=== PATIENT | male | born 1960 | race Two or more races ===

== ENCOUNTER 2019-04-17 22:50 | Inpatient (IN) | payer MEDICAID, OTHER ==
[~2019-04-17] VITALS: Ht 185.4 cm; Wt 68.1 kg
[2019-04-17 23:10] LABS: BASOPHILS % (AUTO) 0.3 % (0.0-2.0); EOSINOPHILS % (AUTO) 5.9 % (1.0-6.0); HEMATOCRIT 40.9 % (41-53); LYMPHOCYTES # (AUTO) 1.7 K/uL (1.0-4.8); LYMPHOCYTES % (AUTO) 25.5 % (22.0-44.0); MEAN CORPUSCULAR HEMOGLOBIN 24.7 pg (26.0-34.0); MEAN CORPUSCULAR HGB CONC 31.8 G/dL (31.0-37.0); MEAN CORPUSCULAR VOLUME 78 fL (80-100); MONOCYTES # (AUTO) 0.5 K/uL (0.1-1.0); MONOCYTES % (AUTO) 6.9 % (2.0-9.0); NEUTROPHILS % (AUTO) 61.4 % (40.0-70.0); PLATELET COUNT (AUTO) 253 K/uL (150-450); RED BLOOD CELL COUNT(AUTO) 5.26 MIL/uL (4.50-5.90); RED CELL DISTRIBUTION WIDTH 16.1 % (11.5-14.5)
[2019-04-17] MEDS ORDERED: OMEP20 PO (23:14)
[2019-04-17] MEDS ORDERED: LISI-660 PO (23:14)
[2019-04-17 23:21] LABS: ANION GAP 9 mmol/L (8-16); CARBON DIOXIDE 26 mmol/L (22-29); CHLORIDE 104 mmol/L (98-107); CREATININE 1.31 mg/dL (0.60-1.30); GLOMERULAR FILTR. RATE CALC > 60 mL/min (>60); GLUCOSE,RANDOM 103 mg/dL (70-110); POTASSIUM 4.2 mmol/L (3.5-5.1); SODIUM SERUM 139 mmol/L (136-145); UREA NITROGEN, BLOOD 6 mg/dL (7-18)
[2019-04-17 23:30] LABS: INR 1.1 (0.9-1.1); PROTHROMBIN TIME 10.8 SEC (9.4-11.6)
[2019-04-17 23:47] LABS: ALANINE AMINOTRANSFERASE 21 U/L (12-78); ALBUMIN 3.3 g/dL (3.4-5.0); ALKALINE PHOSPHATASE 118 U/L (46-116); ASPARTATE AMINOTRANSFERASE 36 U/L (15-37); BILIRUBIN,TOTAL 0.2 mg/dL (0.1-1.0); CREATINE KINASE, TOTAL ONLY 126 U/L (39-308); LIPASE 86 U/L (73-393); TOTAL PROTEIN, SERUM 7.2 g/dL (6.4-8.2)
[2019-04-18] MEDS ORDERED: ONDANSETRON HCL 4 MG/2 ML VIAL IVP PRN
[2019-04-18 00:11] LABS: B-TYPE NATRIURETIC PEPTIDE 22 pg/mL (0-100)
[2019-04-18 00:25] LABS: APPEARANCE,URINE CLEAR (CLEAR); BILIRUBIN,URINE NEGATIVE (NEGATIVE); GLUCOSE, URINE (UA) NEGATIVE (NEGATIVE); KETONES,URINE NEGATIVE (NEGATIVE); LEUKOCYTE ESTERASE ,URINE NEGATIVE (NEGATIVE); NITRATE,URINE NEGATIVE (NEGATIVE); OCCULT BLOOD,URINE NEGATIVE (NEGATIVE); PH,URINE 5.5 (5.0-8.0); PROTEIN,URINE NEGATIVE (NEGATIVE); UROBILINOGEN,URINE 0.2 mg/dL (<=1.0)
[2019-04-18 00:30] VITALS: BP 111/82
[2019-04-18 00:30] LABS: AMPHET/METH SCREEN,URINE NEGATIVE (NEGATIVE); BARBITURATE SCREEN, URINE NEGATIVE (NEGATIVE); BENZODIAZEPINES SCREEN,URINE NEGATIVE (NEGATIVE); CANNABINOID SCREEN,URINE NEGATIVE (NEGATIVE); COCAINE SCREEN,URINE NEGATIVE (NEGATIVE); METHADONE SCREEN, URINE NEGATIVE (NEGATIVE); OPIATE SCREEN,URINE NEGATIVE (NEGATIVE); PHENCYCLIDINE SCREEN,URINE NEGATIVE (NEGATIVE)
[2019-04-18] MEDS ORDERED: INFLUENZA VIRUS VACCINE QVS 2019-20 (3YR+)/PF 60 MCG/0.5 ML SYRINGE IM ONE (04:15)
[2019-04-18 05:29] VITALS: BP 119/77
[2019-04-18 07:23] VITALS: BP 122/78
[2019-04-18] MEDS ORDERED: ACETAMINOPHEN 325 MG TABLET PO PRN ×2 (09:00)
[2019-04-18] MEDS ORDERED: MAGNESIUM SULFATE 2 GM/WATER 50 ML IV PRN (10:00)
[2019-04-18] MEDS ORDERED: MAGNESIUM SULFATE 4 GM/WATER 100 ML IV PRN (10:00)
[2019-04-18] MEDS ORDERED: MAGNESIUM OXIDE 400 MG TABLET PO PRN (10:00)
[2019-04-18] MEDS: MULTIVITAMINS WITH MINERALS, THERAPEUTIC TABLET PO SCH (10:33)
[2019-04-18] MEDS: ASPIRIN 81 MG CHEWABLE TABLET PO SCH (10:33)
[2019-04-18] MEDS: FAMOTIDINE 20 MG TABLET PO SCH (10:33)
[2019-04-18] MEDS: DOCUSATE SODIUM 100 MG CAPSULE PO SCH ×2 (10:33→21:00)
[2019-04-18] MEDS ORDERED: DENTURE ADHESIVE 68 GM CREAM DT PRN (10:45)
[2019-04-18 10:52] VITALS: BP 138/78
[2019-04-18 12:01] LABS: ALBUMIN 3.2 g/dL (3.4-5.0); MAGNESIUM 1.9 mg/dL (1.80-2.40)
[2019-04-18 16:00] VITALS: BP 141/95
[2019-04-18 19:50] VITALS: BP 150/95
[2019-04-19 00:25] VITALS: BP 136/93
[2019-04-19 04:30] VITALS: BP 146/91
[2019-04-19] MEDS: MULTIVITAMINS WITH MINERALS, THERAPEUTIC TABLET PO SCH (08:19)
[2019-04-19] MEDS: DOCUSATE SODIUM 100 MG CAPSULE PO SCH (08:19)
[2019-04-19] MEDS: FAMOTIDINE 20 MG TABLET PO SCH (08:19)
[2019-04-19] MEDS: ASPIRIN 81 MG CHEWABLE TABLET PO SCH (08:19)
[2019-04-19 08:28] VITALS: BP 138/95
[2019-04-19 12:06] VITALS: BP 130/87
== END 2019-04-19 13:05 | disposition home or self-care (01) | DRG 243 ==
LOC: EMS 22:52 → 5N 04-18 00:30
PROVIDERS: ADMIT Internal Medicine; ATTEND Internal Medicine
DX: K21.9 Gastro-esophageal reflux disease without esophagitis (principal); E43 Unspecified severe protein-calorie malnutrition; F10.129 Alcohol abuse with intoxication, unspecified; Y90.9 Presence of alcohol in blood, level not specified; I10 Essential (primary) hypertension; I25.2 Old myocardial infarction; Z88.8 Allergy status to other drugs, medicaments and biological substances; Z68.1 Body mass index [BMI] 19.9 or less, adult
CPT/HCPCS: 83735; 93005; 93306; G0480

== ENCOUNTER 2019-07-16 10:13 | Emergency (ER) | payer OTHER ==
[~2019-07-16] VITALS: Ht 182.9 cm; Wt 68.2 kg
[~2019-07-16 10:13] MED LIST: LISI-660 PO; OMEP20 PO
[2019-07-16] MEDS ORDERED: ACETAMINOPHEN 500 MG TABLET PO ONE (11:00)
[2019-07-16 12:34] LABS: INFLUENZA TYPE A NEGATIVE FOR TYPE A (NEGATIVE); INFLUENZA TYPE B NEGATIVE FOR TYPE B (NEGATIVE)
[2019-07-16 13:45] VITALS: BP 136/91
== END 2019-07-16 13:58 | disposition home or self-care (01) ==
LOC: EMS 10:13
DX: B34.9 Viral infection, unspecified (principal); M79.10 Myalgia, unspecified site; I11.9 Hypertensive heart disease without heart failure; I25.2 Old myocardial infarction; Z20.828 Contact with and (suspected) exposure to other viral communicable diseases; Z88.6 Allergy status to analgesic agent; Z79.899 Other long term (current) drug therapy
CPT/HCPCS: 87635; 87804

== ENCOUNTER 2019-11-15 10:50 | Inpatient (IN) | payer OTHER ==
[~2019-11-15] VITALS: Ht 180.3 cm; Wt 65.9 kg
[2019-11-15] MEDS ORDERED: HYDR-1475 PO (11:04)
[2019-11-15] MEDS ORDERED: AMLO-257 PO (11:04)
[2019-11-15] MEDS ORDERED: ASPI-728 PO (11:04)
[2019-11-15] MEDS ORDERED: ALBU8HFA IH (11:04)
[2019-11-15] MEDS ORDERED: RISP0.5T20 PO (11:04)
[2019-11-15] MEDS ORDERED: MULT-248 PO (11:04)
[2019-11-15] MEDS ORDERED: SILD25 PO (11:04)
[2019-11-15] MEDS ORDERED: SERT50TA12 PO (11:04)
[2019-11-15] MEDS ORDERED: HYDR-4455 PO (11:04)
[2019-11-15] MEDS ORDERED: BECL10.6 IH (11:04)
[2019-11-15] MEDS ORDERED: TRAZ-252 PO (11:04)
[2019-11-15] MEDS ORDERED: TERA1CAP7 PO (11:04)
[2019-11-15] MEDS ORDERED: NITROGLYCERIN 0.4 MG SUBLINGUAL TABLET #25 SL ONE (11:15)
[2019-11-15 11:21] LABS: BASOPHILS % (AUTO) 0.2 % (0.0-2.0); EOSINOPHILS % (AUTO) 2.8 % (1.0-6.0); HEMATOCRIT 36.1 % (41-53); HEMOGLOBIN 11.5 g/dL (13.5-17.5); LYMPHOCYTES # (AUTO) 0.9 K/uL (1.0-4.8); MEAN CORPUSCULAR HEMOGLOBIN 24.5 pg (26.0-34.0); MEAN CORPUSCULAR VOLUME 77 fL (80-100); MONOCYTES # (AUTO) 0.4 K/uL (0.1-1.0); NEUTROPHILS # (AUTO) 4.4 K/uL (1.8-7.7); PLATELET COUNT (AUTO) 245 K/uL (150-450); RED BLOOD CELL COUNT(AUTO) 4.71 MIL/uL (4.50-5.90); RED CELL DISTRIBUTION WIDTH 15.5 % (11.5-14.5)
[2019-11-15 11:30] LABS: CALCIUM, TOTAL 8.6 mg/dL (8.8-10.5); CREATININE 1.23 mg/dL (0.60-1.30); POTASSIUM 3.6 mmol/L (3.5-5.1)
[2019-11-15 11:36] LABS: INR 1.1 (0.9-1.1); PROTHROMBIN TIME 11.6 SEC (9.4-11.6)
[2019-11-15] MEDS ORDERED: SODIUM CHLORIDE 0.9% 1,000 ML IV ONE (11:45)
[2019-11-15 11:57] LABS: ALBUMIN 3.5 g/dL (3.4-5.0); BILIRUBIN,TOTAL 0.6 mg/dL (0.1-1.0); TOTAL PROTEIN, SERUM 7.4 g/dL (6.4-8.2)
[2019-11-15] MEDS ORDERED: PANTOPRAZOLE SODIUM 40 MG/VIAL IVP ONE (12:00)
[2019-11-15] MEDS ORDERED: PANTOPRAZOLE SODIUM 80 MG in SODIUM CHLORIDE 0.9% 100 ML IV SCH (12:00)
[2019-11-15 12:35] LABS: INR 1.1 (0.9-1.1); PROTHROMBIN TIME 11.4 SEC (9.4-11.6)
[2019-11-15] MEDS ORDERED: ACETAMINOPHEN 325 MG TABLET PO PRN ×2 (13:45→14:45)
[2019-11-15] MEDS ORDERED: ONDANSETRON HCL 4 MG/2 ML VIAL IVP PRN (13:45)
[2019-11-15 16:36] VITALS: BP 143/94
[2019-11-15] MEDS ORDERED: PEG 3350/NA SULF,BICARB,CL/KCL 4000 ML SOLUTION PO ONE (19:00)
[2019-11-15 19:58] VITALS: BP 138/89
[2019-11-15] MEDS: DOCUSATE SODIUM 100 MG CAPSULE PO SCH (20:52)
[2019-11-15] MEDS: PANTOPRAZOLE SODIUM 80 MG in SODIUM CHLORIDE 0.9% 100 ML IV SCH (22:11)
[2019-11-15 23:29] VITALS: BP 130/76
[2019-11-16 04:49] VITALS: BP 139/76
[2019-11-16 07:10] VITALS: BP 126/72
[2019-11-16 07:41] LABS: BASOPHILS % (AUTO) 0.2 % (0.0-2.0); EOSINOPHILS % (AUTO) 3.9 % (1.0-6.0); LYMPHOCYTES # (AUTO) 1.5 K/uL (1.0-4.8); MEAN CORPUSCULAR HEMOGLOBIN 24.5 pg (26.0-34.0); MEAN CORPUSCULAR HGB CONC 31.6 G/dL (31.0-37.0); MEAN CORPUSCULAR VOLUME 78 fL (80-100); MONOCYTES # (AUTO) 0.5 K/uL (0.1-1.0); MONOCYTES % (AUTO) 7.9 % (2.0-9.0); NEUTROPHILS # (AUTO) 4.3 K/uL (1.8-7.7); PLATELET COUNT (AUTO) 263 K/uL (150-450); RED BLOOD CELL COUNT(AUTO) 4.91 MIL/uL (4.50-5.90); RED CELL DISTRIBUTION WIDTH 15.6 % (11.5-14.5)
[2019-11-16] MEDS: PANTOPRAZOLE SODIUM 80 MG in SODIUM CHLORIDE 0.9% 100 ML IV SCH (08:07)
[2019-11-16] MEDS ORDERED: SODIUM CHLORIDE 0.45% 1,000 ML IV ONE (09:00)
[2019-11-16] MEDS: DOCUSATE SODIUM 100 MG CAPSULE PO SCH (09:00)
[2019-11-16] MEDS ORDERED: FentaNYL CITRATE-PF 100 MCG/2 ML VIAL ONE (09:14)
[2019-11-16] MEDS ORDERED: MIDAZOLAM HCL 5 MG/ML VIAL ONE (09:14)
[2019-11-16] MEDS ORDERED: SODIUM CHLORIDE 0.9% 1,000 ML ONE (09:45)
[2019-11-16 11:59] LABS: % IRON SATURATION 25.7 % (30-44)
[2019-11-16 12:00] VITALS: BP 132/83
[2019-11-16] MEDS ORDERED: FentaNYL CITRATE-PF 100 MCG/2 ML VIAL IVP ONE (12:00)
[2019-11-16] MEDS ORDERED: MIDAZOLAM HCL 2 MG/2 ML VIAL IVP ONE (12:00)
[2019-11-16 15:35] VITALS: BP 136/82
[2019-11-16] MEDS: PANTOPRAZOLE SODIUM 40 MG DR TABLET PO SCH (20:00)
[2019-11-16 20:03] VITALS: BP 140/77
[2019-11-17 00:02] VITALS: BP 116/73
[2019-11-17 04:31] VITALS: BP 136/80
[2019-11-17 07:10] LABS: BASOPHILS % (AUTO) 0.1 % (0.0-2.0); EOSINOPHILS % (AUTO) 3.8 % (1.0-6.0); HEMATOCRIT 33.3 % (41-53); HEMOGLOBIN 10.6 g/dL (13.5-17.5); LYMPHOCYTES # (AUTO) 0.9 K/uL (1.0-4.8); LYMPHOCYTES % (AUTO) 14.5 % (22.0-44.0); MEAN CORPUSCULAR HEMOGLOBIN 24.7 pg (26.0-34.0); MEAN CORPUSCULAR HGB CONC 31.8 G/dL (31.0-37.0); MEAN CORPUSCULAR VOLUME 78 fL (80-100); MONOCYTES # (AUTO) 0.5 K/uL (0.1-1.0); MONOCYTES % (AUTO) 8.3 % (2.0-9.0); NEUTROPHILS # (AUTO) 4.4 K/uL (1.8-7.7); NEUTROPHILS % (AUTO) 73.3 % (40.0-70.0); PLATELET COUNT (AUTO) 222 K/uL (150-450); RED BLOOD CELL COUNT(AUTO) 4.29 MIL/uL (4.50-5.90); RED CELL DISTRIBUTION WIDTH 15.9 % (11.5-14.5)
[2019-11-17 07:21] VITALS: BP 139/85
[2019-11-17 07:37] LABS: ALBUMIN 2.7 g/dL (3.4-5.0); BILIRUBIN,TOTAL 0.2 mg/dL (0.1-1.0); CALCIUM, TOTAL 8.1 mg/dL (8.8-10.5); CREATININE 1.28 mg/dL (0.60-1.30); MAGNESIUM 1.8 mg/dL (1.80-2.40); POTASSIUM 4.5 mmol/L (3.5-5.1); TOTAL PROTEIN, SERUM 5.8 g/dL (6.4-8.2)
[2019-11-17] MEDS: PANTOPRAZOLE SODIUM 40 MG DR TABLET PO SCH (08:54)
== END 2019-11-17 10:40 | disposition home or self-care (01) | DRG 253 ==
LOC: EMS 10:54 → 5S 14:42
PROVIDERS: ADMIT Internal Medicine; ATTEND Internal Medicine
PROC: 0DJD8ZZ Inspection of Lower Intestinal Tract, Via Natural or Artificial Opening Endoscopic (ICD-10-PCS; 2019-11-16)
PROC: 0DB68ZX Excision of Stomach, Via Natural or Artificial Opening Endoscopic, Diagnostic (ICD-10-PCS; principal; 2019-11-16 10:00)
DX: K92.2 Gastrointestinal hemorrhage, unspecified (principal); K64.8 Other hemorrhoids; F10.10 Alcohol abuse, uncomplicated; F20.9 Schizophrenia, unspecified; D62 Acute posthemorrhagic anemia; I10 Essential (primary) hypertension; J44.9 Chronic obstructive pulmonary disease, unspecified; K44.9 Diaphragmatic hernia without obstruction or gangrene; R07.89 Other chest pain; I25.2 Old myocardial infarction; Z79.82 Long term (current) use of aspirin; Z87.11 Personal history of peptic ulcer disease; Z95.5 Presence of coronary angioplasty implant and graft; Z79.899 Other long term (current) drug therapy; Z79.01 Long term (current) use of anticoagulants; Z82.49 Family history of ischemic heart disease and other diseases of the circulatory system; Z03.818 Encounter for observation for suspected exposure to other biological agents ruled out
CPT/HCPCS: 82271; 82728; 83540; 83550; 83735; 86677; 86850; 86900; 86901; 88305; 88312; 88313; 93005; 93306; C9113; J2250; J3010; J7030; J7050; 36415-L1; 36415-TC; 71045-TC; 87635; U0003-CS

== ENCOUNTER 2020-06-14 10:15 | Emergency (ER) | payer OTHER ==
[~2020-06-14] VITALS: Ht 175.3 cm; Wt 67.3 kg
[~2020-06-14 10:15] MED LIST changes: +ALBU8HFA IH; +AMLO-257 PO; +ASPI-1450 PO; +BECL10.6 IH; -LISI-660 PO; +MULT-248 PO; +RISP0.5T39 PO; +SERT-158 PO; +SILD25 PO; +TERA1CAP53 PO; +TRAZ-252 PO
[2020-06-14] MEDS ORDERED: LISI20TA24 PO (10:38)
[2020-06-14] MEDS ORDERED: AMLO2.5T29 PO (10:38)
[2020-06-14] MEDS ORDERED: HYDR25TA PO (10:38)
[2020-06-14] MEDS ORDERED: GABA-1216 PO (10:38)
[2020-06-14] MEDS ORDERED: ONDANSETRON HCL 4 MG/2 ML VIAL IVP ONE (13:15)
[2020-06-14] MEDS ORDERED: ACETAMINOPHEN 500 MG TABLET PO ONE (13:15)
[2020-06-14 13:55] LABS: BASOPHILS % (AUTO) 0.2 % (0.0-2.0); EOSINOPHILS % (AUTO) 3.5 % (1.0-6.0); HEMATOCRIT 43.1 % (41-53); HEMOGLOBIN 13.4 g/dL (13.5-17.5); LYMPHOCYTES # (AUTO) 1.2 K/uL (1.0-4.8); LYMPHOCYTES % (AUTO) 14.6 % (22.0-44.0); MEAN CORPUSCULAR HGB CONC 31.2 G/dL (31.0-37.0); MEAN CORPUSCULAR VOLUME 77 fL (80-100); MONOCYTES # (AUTO) 0.5 K/uL (0.1-1.0); NEUTROPHILS # (AUTO) 6.2 K/uL (1.8-7.7); NEUTROPHILS % (AUTO) 75.7 % (40.0-70.0); PLATELET COUNT (AUTO) 234 K/uL (150-450); RED BLOOD CELL COUNT(AUTO) 5.59 MIL/uL (4.50-5.90); RED CELL DISTRIBUTION WIDTH 15.6 % (11.5-14.5)
[2020-06-14 13:58] LABS: ANION GAP 8 mmol/L (8-16); CALCIUM, TOTAL 8.5 mg/dL (8.8-10.5); CARBON DIOXIDE 27 mmol/L (22-29); CHLORIDE 105 mmol/L (98-107); CREATININE 1.06 mg/dL (0.60-1.30); GLOMERULAR FILTR. RATE CALC > 60 mL/min (>60); GLUCOSE,RANDOM 89 mg/dL (70-110); POTASSIUM 4.2 mmol/L (3.5-5.1); SODIUM SERUM 140 mmol/L (136-145); UREA NITROGEN, BLOOD 8 mg/dL (7-18)
[2020-06-14] MEDS ORDERED: SODIUM CHLORIDE 0.9% 100 ML ONE (14:01)
[2020-06-14] MEDS ORDERED: IOVERSOL 350 MG/ML 100 ML VIAL ONE (14:01)
[2020-06-14 14:04] LABS: ALANINE AMINOTRANSFERASE 17 U/L (12-78); ALBUMIN 3.4 g/dL (3.4-5.0); ALKALINE PHOSPHATASE 116 U/L (46-116); ASPARTATE AMINOTRANSFERASE 21 U/L (15-37); BILIRUBIN,TOTAL 0.5 mg/dL (0.1-1.0); TOTAL PROTEIN, SERUM 7.4 g/dL (6.4-8.2)
[2020-06-14 15:47] LABS: APPEARANCE,URINE CLEAR (CLEAR); BILIRUBIN,URINE NEGATIVE (NEGATIVE); GLUCOSE, URINE (UA) NEGATIVE (NEGATIVE); KETONES,URINE NEGATIVE (NEGATIVE); LEUKOCYTE ESTERASE ,URINE NEGATIVE (NEGATIVE); NITRATE,URINE NEGATIVE (NEGATIVE); OCCULT BLOOD,URINE NEGATIVE (NEGATIVE); PH,URINE 5.5 (5.0-8.0); PROTEIN,URINE NEGATIVE (NEGATIVE); UROBILINOGEN,URINE 0.2 mg/dL (<=1.0)
[2020-06-14 16:30] VITALS: BP 141/90
== END 2020-06-14 17:20 | disposition home or self-care (01) ==
LOC: EMS 10:15
DX: J02.9 Acute pharyngitis, unspecified (principal); R07.81 Pleurodynia; R11.10 Vomiting, unspecified; I11.9 Hypertensive heart disease without heart failure; I25.2 Old myocardial infarction; F20.9 Schizophrenia, unspecified; Z88.6 Allergy status to analgesic agent; Z79.899 Other long term (current) drug therapy
CPT/HCPCS: 36415; 70491; 71045; 80053; 81003; 85025; 96374; 99285; J2405; J7050; Q9967

== ENCOUNTER 2020-08-20 16:41 | Emergency (ER) | payer OTHER ==
[~2020-08-20] VITALS: Ht 182.9 cm; Wt 68.2 kg
[~2020-08-20 16:41] MED LIST changes: -AMLO-257 PO; +AMLO2.5T29 PO; +GABA-1216 PO; +HYDR25TA PO; +LISI20TA24 PO
[2020-08-20] MEDS ORDERED: MORPHINE SULFATE 2 MG/ML SYRINGE IVP ONE (17:30)
[2020-08-20] MEDS ORDERED: SODIUM CHLORIDE 0.9% 1,000 ML IV ONE (17:30)
[2020-08-20] MEDS ORDERED: FAMOTIDINE 10 MG/ML 2 ML VIAL IVP ONE (17:30)
[2020-08-20] MEDS ORDERED: MAG HYDROX/AL HYDROX/SIMETH 30 ML SUSP UDCUP PO ONE (17:30)
[2020-08-20] MEDS ORDERED: ONDANSETRON HCL 4 MG/2 ML VIAL IVP ONE (17:30)
[2020-08-20 18:12] LABS: BASOPHILS % (AUTO) 0.2 % (0.0-2.0); EOSINOPHILS % (AUTO) 5.1 % (1.0-6.0); HEMATOCRIT 44.4 % (41-53); HEMOGLOBIN 13.9 g/dL (13.5-17.5); LYMPHOCYTES # (AUTO) 1.1 K/uL (1.0-4.8); LYMPHOCYTES % (AUTO) 14.4 % (22.0-44.0); MEAN CORPUSCULAR HEMOGLOBIN 23.9 pg (26.0-34.0); MEAN CORPUSCULAR HGB CONC 31.3 G/dL (31.0-37.0); MEAN CORPUSCULAR VOLUME 76 fL (80-100); MONOCYTES # (AUTO) 0.5 K/uL (0.1-1.0); MONOCYTES % (AUTO) 6.5 % (2.0-9.0); NEUTROPHILS # (AUTO) 5.8 K/uL (1.8-7.7); NEUTROPHILS % (AUTO) 73.8 % (40.0-70.0); PLATELET COUNT (AUTO) 253 K/uL (150-450); RED BLOOD CELL COUNT(AUTO) 5.81 MIL/uL (4.50-5.90); RED CELL DISTRIBUTION WIDTH 16.1 % (11.5-14.5)
[2020-08-20 18:22] LABS: ANION GAP 7 mmol/L (8-16); CALCIUM, TOTAL 8.6 mg/dL (8.8-10.5); CARBON DIOXIDE 31 mmol/L (22-29); CHLORIDE 103 mmol/L (98-107); CREATININE 1.23 mg/dL (0.60-1.30); GLOMERULAR FILTR. RATE CALC > 60 mL/min (>60); GLUCOSE,RANDOM 78 mg/dL (70-110); POTASSIUM 3.9 mmol/L (3.5-5.1); SODIUM SERUM 141 mmol/L (136-145); UREA NITROGEN, BLOOD 7 mg/dL (7-18)
[2020-08-20 18:28] LABS: ALANINE AMINOTRANSFERASE 22 U/L (12-78); ALBUMIN 3.4 g/dL (3.4-5.0); ALKALINE PHOSPHATASE 100 U/L (46-116); ASPARTATE AMINOTRANSFERASE 18 U/L (15-37); BILIRUBIN,TOTAL 0.2 mg/dL (0.1-1.0); LIPASE 77 U/L (73-393); TOTAL PROTEIN, SERUM 7.5 g/dL (6.4-8.2)
[2020-08-20] MEDS ORDERED: SODIUM CHLORIDE 0.9% 100 ML ONE (18:29)
[2020-08-20] MEDS ORDERED: IOVERSOL 320 MG/ML 50 ML VIAL ONE (18:29)
[2020-08-20 20:00] VITALS: BP 135/90
== END 2020-08-20 20:21 | disposition home or self-care (01) ==
LOC: EMS 16:41
DX: R10.33 Periumbilical pain (principal); R11.2 Nausea with vomiting, unspecified; I11.9 Hypertensive heart disease without heart failure; I25.2 Old myocardial infarction; F20.9 Schizophrenia, unspecified; Z88.6 Allergy status to analgesic agent
CPT/HCPCS: 74177; 80053; 83690; 85025; 96361; 96374; 96375; 99285; J2270; J2405; J3490; J7030; J7050; Q9967

== ENCOUNTER 2021-02-11 17:37 | Emergency (ER) | payer OTHER ==
[~2021-02-11] VITALS: Ht 175.3 cm; Wt 68.2 kg
[2021-02-11] MEDS ORDERED: SODIUM CHLORIDE 0.9% 1,000 ML IV ONE ×2 (19:30→21:15)
[2021-02-11] MEDS ORDERED: ONDANSETRON HCL 4 MG/2 ML VIAL IVP ONE (19:30)
[2021-02-11] MEDS ORDERED: FAMOTIDINE 10 MG/ML 2 ML VIAL IVP ONE (19:45)
[2021-02-11] MEDS ORDERED: PB/HYOSCY/ATR/SCOP/LIDO/MAALOX 55 ML BOTTLE PO ONE (19:45)
[2021-02-11 19:53] LABS: BASOPHILS % (AUTO) 0.1 % (0.0-2.0); EOSINOPHILS % (AUTO) 4.1 % (1.0-6.0); HEMATOCRIT 42.8 % (41-53); HEMOGLOBIN 13.3 g/dL (13.5-17.5); LYMPHOCYTES % (AUTO) 11.3 % (22.0-44.0); MEAN CORPUSCULAR HEMOGLOBIN 23.9 pg (26.0-34.0); MEAN CORPUSCULAR HGB CONC 31.1 G/dL (31.0-37.0); MEAN CORPUSCULAR VOLUME 77 fL (80-100); MONOCYTES # (AUTO) 0.4 K/uL (0.1-1.0); MONOCYTES % (AUTO) 4.2 % (2.0-9.0); NEUTROPHILS # (AUTO) 7.1 K/uL (1.8-7.7); NEUTROPHILS % (AUTO) 80.3 % (40.0-70.0); PLATELET COUNT (AUTO) 251 K/uL (150-450); RED BLOOD CELL COUNT(AUTO) 5.57 MIL/uL (4.50-5.90); RED CELL DISTRIBUTION WIDTH 16.2 % (11.5-14.5)
[2021-02-11 20:02] LABS: ANION GAP 11 mmol/L (8-16); CALCIUM, TOTAL 8.3 mg/dL (8.8-10.5); CARBON DIOXIDE 24 mmol/L (22-29); CHLORIDE 103 mmol/L (98-107); CREATININE 1.13 mg/dL (0.60-1.30); GLOMERULAR FILTR. RATE CALC > 60 mL/min (>60); GLUCOSE,RANDOM 119 mg/dL (70-110); POTASSIUM 3.8 mmol/L (3.5-5.1); SODIUM SERUM 138 mmol/L (136-145); UREA NITROGEN, BLOOD 6 mg/dL (7-18)
[2021-02-11 20:28] LABS: ALANINE AMINOTRANSFERASE 19 U/L (12-78); ALBUMIN 3.3 g/dL (3.4-5.0); ALKALINE PHOSPHATASE 133 U/L (46-116); ASPARTATE AMINOTRANSFERASE 22 U/L (15-37); BILIRUBIN,TOTAL 0.3 mg/dL (0.1-1.0); CREATINE KINASE, TOTAL ONLY 85 U/L (39-308); LIPASE 76 U/L (73-393); TOTAL PROTEIN, SERUM 7.4 g/dL (6.4-8.2)
[2021-02-11 20:32] LABS: COVID AG,FIA SOURCE NASOPHARYNGEAL
[2021-02-11] MEDS ORDERED: IOHEXOL 350 MG/ML 100 ML VIAL ONE (21:22)
[2021-02-11] MEDS ORDERED: SODIUM CHLORIDE 0.9% 100 ML ONE (21:22)
[2021-02-11 22:23] LABS: APPEARANCE,URINE CLEAR (CLEAR); BILIRUBIN,URINE NEGATIVE (NEGATIVE); GLUCOSE, URINE (UA) NEGATIVE (NEGATIVE); KETONES,URINE NEGATIVE (NEGATIVE); LEUKOCYTE ESTERASE ,URINE NEGATIVE (NEGATIVE); NITRATE,URINE NEGATIVE (NEGATIVE); OCCULT BLOOD,URINE NEGATIVE (NEGATIVE); PH,URINE 6.5 (5.0-8.0); PROTEIN,URINE NEGATIVE (NEGATIVE); UROBILINOGEN,URINE 0.2 mg/dL (<=1.0)
[2021-02-11 22:42] LABS: BACTERIA,URINE None Seen /HPF (None Seen); RBC,URINE None Seen /HPF (0-2); WBC,URINE None Seen /HPF (0-5)
[2021-02-11 23:00] VITALS: BP 138/100
== END 2021-02-12 02:29 | disposition home or self-care (01) ==
LOC: EMS 17:41
DX: R10.13 Epigastric pain (principal); R11.2 Nausea with vomiting, unspecified; R51.9 Headache, unspecified; R42 Dizziness and giddiness; I11.9 Hypertensive heart disease without heart failure; I25.2 Old myocardial infarction; F17.210 Nicotine dependence, cigarettes, uncomplicated; Z20.822 Contact with and (suspected) exposure to COVID-19; Z88.6 Allergy status to analgesic agent
CPT/HCPCS: 36415; 70450; 74177; 80053; 81001; 82550; 83690; 83880; 84484; 85025; 87426; 93005; 96361; 96374; 96375; 99285; J2405; J3490; J7030; J7050; Q9967; U0003

== ENCOUNTER 2021-02-14 01:02 | Emergency (ER) | payer OTHER ==
[~2021-02-14] VITALS: Ht 182.9 cm; Wt 68.2 kg
[2021-02-14] MEDS ORDERED: LIDOCAINE 1% 10 ML VIAL SQ ONE (02:30)
[2021-02-14] MEDS ORDERED: BACITRACIN 3.5 GM OPHTHALMIC OINTMENT OS ONE (03:00)
[2021-02-14 05:27] VITALS: BP 137/89
== END 2021-02-14 06:30 | disposition home or self-care (01) ==
LOC: EMS 01:05
DX: S01.81XA Laceration without foreign body of other part of head, initial encounter (principal); S02.2XXA Fracture of nasal bones, initial encounter for closed fracture; I11.9 Hypertensive heart disease without heart failure; I25.2 Old myocardial infarction; F20.9 Schizophrenia, unspecified; Y04.0XXA Assault by unarmed brawl or fight, initial encounter; Y93.89 Activity, other specified; Y92.89 Other specified places as the place of occurrence of the external cause; Y99.8 Other external cause status
CPT/HCPCS: 12013; 70450; 70486; 99285; J3490

== ENCOUNTER 2021-03-03 07:28 | Emergency (ER) | payer OTHER ==
[~2021-03-03] VITALS: Ht 185.4 cm; Wt 68.2 kg
[2021-03-03] MEDS ORDERED: HYDROCODONE/ACETAMINOPHEN 5-325 MG TABLET PO ONE (07:45)
[2021-03-03] MEDS ORDERED: BENZOCAINE 10% 7 GM GEL TP ONE (08:00)
[2021-03-03 08:33] VITALS: BP 131/74
== END 2021-03-03 08:35 | disposition home or self-care (01) ==
LOC: EMS 07:30
DX: K12.1 Other forms of stomatitis (principal); I11.9 Hypertensive heart disease without heart failure; I25.2 Old myocardial infarction; F20.9 Schizophrenia, unspecified; Z48.02 Encounter for removal of sutures; Z88.6 Allergy status to analgesic agent
CPT/HCPCS: 99283

== ENCOUNTER 2021-04-23 10:11 | Emergency (ER) | payer OTHER ==
[~2021-04-23] VITALS: Ht 182.9 cm; Wt 68.2 kg
[2021-04-23 11:45] LABS: BASOPHILS % (AUTO) 0.5 % (0.0-2.0); EOSINOPHILS % (AUTO) 8.5 % (1.0-6.0); HEMATOCRIT 41.8 % (41-53); HEMOGLOBIN 13.2 g/dL (13.5-17.5); LYMPHOCYTES # (AUTO) 1.1 K/uL (1.0-4.8); MEAN CORPUSCULAR HEMOGLOBIN 23.7 pg (26.0-34.0); MEAN CORPUSCULAR HGB CONC 31.5 G/dL (31.0-37.0); MEAN CORPUSCULAR VOLUME 75 fL (80-100); MONOCYTES # (AUTO) 0.4 K/uL (0.1-1.0); MONOCYTES % (AUTO) 6.7 % (2.0-9.0); NEUTROPHILS # (AUTO) 4.1 K/uL (1.8-7.7); NEUTROPHILS % (AUTO) 66.3 % (40.0-70.0); PLATELET COUNT (AUTO) 256 K/uL (150-450); RED BLOOD CELL COUNT(AUTO) 5.56 MIL/uL (4.50-5.90); RED CELL DISTRIBUTION WIDTH 14.8 % (11.5-14.5)
[2021-04-23 11:58] LABS: ANION GAP 8 mmol/L (8-16); CALCIUM, TOTAL 8.3 mg/dL (8.8-10.5); CARBON DIOXIDE 24 mmol/L (22-29); CHLORIDE 103 mmol/L (98-107); CREATININE 1.06 mg/dL (0.60-1.30); GLOMERULAR FILTR. RATE CALC > 60 mL/min (>60); GLUCOSE,RANDOM 110 mg/dL (70-110); POTASSIUM 3.8 mmol/L (3.5-5.1); SODIUM SERUM 135 mmol/L (136-145); UREA NITROGEN, BLOOD 8 mg/dL (7-18)
[2021-04-23 12:05] LABS: ALANINE AMINOTRANSFERASE 21 U/L (12-78); ALBUMIN 3.1 g/dL (3.4-5.0); ALKALINE PHOSPHATASE 103 U/L (46-116); ASPARTATE AMINOTRANSFERASE 16 U/L (15-37); BILIRUBIN,TOTAL 0.5 mg/dL (0.1-1.0); LIPASE 69 U/L (73-393); TOTAL PROTEIN, SERUM 6.7 g/dL (6.4-8.2)
[2021-04-23 12:09] VITALS: BP 133/84
[2021-04-23 12:13] LABS: LACTIC ACID 0.5 mmol/L (0.4-2.0)
[2021-04-23] MEDS ORDERED: MAG HYDROX/AL HYDROX/SIMETH ES 30 ML SUSPENSION UDCUP PO ONE (12:30)
[2021-04-23] MEDS ORDERED: ACETAMINOPHEN 500 MG TABLET PO ONE (12:30)
== END 2021-04-23 13:00 | disposition home or self-care (01) ==
LOC: EMS 10:11
DX: R07.89 Other chest pain (principal); I10 Essential (primary) hypertension; I25.2 Old myocardial infarction; Z88.6 Allergy status to analgesic agent
CPT/HCPCS: 71045; 80053; 83605; 83690; 84484; 85025; 93005; 99285; 36415-L1; 36415-TC

== ENCOUNTER 2024-01-10 05:14 | Day surgery (SDC) | payer MEDICARE, OTHER ==
[~2024-01-10] VITALS: Ht 182.9 cm; Wt 68.2 kg
[~2024-01-10 05:14] MED LIST changes: -ALBU8HFA IH; -AMLO2.5T29 PO; -ASPI-1450 PO; -BECL10.6 IH; -GABA-1216 PO; -HYDR25TA PO; -LISI20TA24 PO; -MULT-248 PO; -OMEP20 PO; -RISP0.5T39 PO; -SERT-158 PO; -SILD25 PO; +SODIUM CHLORIDE 0.9% 0 ML ONE; -TERA1CAP53 PO; -TRAZ-252 PO
[2024-01-10 06:08] LABS: BASOPHILS % (AUTO) 0.2 % (0.0-2.0); EOSINOPHILS % (AUTO) 7.2 % (1.0-6.0); HEMATOCRIT 45.2 % (41-53); HEMOGLOBIN 14.1 g/dL (13.5-17.5); LYMPHOCYTES # (AUTO) 1.3 K/uL (1.0-4.8); LYMPHOCYTES % (AUTO) 18.4 % (22.0-44.0); MEAN CORPUSCULAR HEMOGLOBIN 24.2 pg (26.0-34.0); MEAN CORPUSCULAR HGB CONC 31.1 G/dL (31.0-37.0); MEAN CORPUSCULAR VOLUME 78 fL (80-100); MONOCYTES # (AUTO) 0.6 K/uL (0.1-1.0); MONOCYTES % (AUTO) 8.5 % (2.0-9.0); NEUTROPHILS # (AUTO) 4.5 K/uL (1.8-7.7); NEUTROPHILS % (AUTO) 65.7 % (40.0-70.0); PLATELET COUNT (AUTO) 255 K/uL (150-450); RED BLOOD CELL COUNT(AUTO) 5.82 MIL/uL (4.50-5.90); RED CELL DISTRIBUTION WIDTH 16.3 % (11.5-14.5); WHITE BLOOD COUNT (AUTO) 6.8 K/uL (4.5-11.0)
[2024-01-10 06:16] LABS: ANION GAP 6 mmol/L (8-16); CALCIUM, TOTAL 8.5 mg/dL (8.8-10.5); CARBON DIOXIDE 29 mmol/L (22-29); CHLORIDE 103 mmol/L (98-107); CREATININE 1.25 mg/dL (0.60-1.30); GLOMERULAR FILTR. RATE CALC > 60 mL/min (>60); GLUCOSE,RANDOM 90 mg/dL (70-110); POTASSIUM 4.6 mmol/L (3.5-5.1); SODIUM SERUM 138 mmol/L (136-145); UREA NITROGEN, BLOOD 8 mg/dL (7-18)
[2024-01-10 06:23] LABS: ALANINE AMINOTRANSFERASE 23 U/L (12-78); ALBUMIN 3.6 g/dL (3.4-5.0); ALKALINE PHOSPHATASE 105 U/L (46-116); ASPARTATE AMINOTRANSFERASE 23 U/L (15-37); BILIRUBIN,TOTAL 0.6 mg/dL (0.1-1.0); TOTAL PROTEIN, SERUM 7.6 g/dL (6.4-8.2)
[2024-01-10 06:32] LABS: RBC MORPHOLOGY COMMENT ABNORMAL RBC MORPH
[2024-01-10 06:33] LABS: INR 1.1 (0.9-1.1); PROTHROMBIN TIME 11.4 SEC (9.4-11.6)
[2024-01-10] MEDS ORDERED: RANO500T27 PO (06:55)
[2024-01-10] MEDS ORDERED: BECL10.6 IH (06:55)
[2024-01-10] MEDS ORDERED: NITR0.4T52 SL (06:55)
[2024-01-10] MEDS ORDERED: CHOL25TA4 PO (06:55)
[2024-01-10] MEDS ORDERED: LOSA-381 PO (06:55)
[2024-01-10] MEDS ORDERED: ASPI-1444 PO (06:55)
[2024-01-10] MEDS ORDERED: ATOR-2 PO (06:55)
[2024-01-10] MEDS ORDERED: TERA1CAP53 PO (06:55)
[2024-01-10] MEDS ORDERED: LIDOCAINE/PF 1% 30 ML VIAL ONE ×2 (07:22→09:48)
[2024-01-10] MEDS ORDERED: SODIUM BICARBONATE 50 MEQ/50 ML VIAL ONE ×2 (07:22→09:48)
[2024-01-10] MEDS ORDERED: HEPARIN SODIUM 1000 UNITS/NS 1,000 ML ONE (07:23)
[2024-01-10] MEDS ORDERED: IOHEXOL 300 MG/ML 100 ML VIAL ONE ×2 (07:23→09:48)
[2024-01-10] MEDS ORDERED: NITROGLYCERIN 50 MG/D5% WATER 250 ML ONE (07:36)
[2024-01-10] MEDS ORDERED: VERAPAMIL HCL 2.5 MG/ML 2 ML VIAL ONE (07:36)
[2024-01-10] MEDS ORDERED: SODIUM CHLORIDE 0.9% 1,000 ML ONE (08:20)
[2024-01-10] MEDS: SODIUM CHLORIDE 0.9% 1,000 ML IV ONE (08:22)
[2024-01-10] MEDS: VERAPAMIL HCL 2.5 MG/ML 2 ML VIAL IARTER ONE (08:25)
[2024-01-10] MEDS: NITROGLYCERIN/D5W 50 MG/250 ML IV BOTTLE IARTER ONE (08:26)
[2024-01-10] MEDS: HEPARIN SODIUM,PORCINE 1,000 UNITS/ML 10 ML VIAL IARTER ONE (08:26)
[2024-01-10] MEDS: HEPARIN SODIUM 1000 UNITS/NS 1,000 ML IARTER ONE (08:26)
[2024-01-10] MEDS: MIDAZOLAM HCL 2 MG/2 ML VIAL IVP ONE (08:30)
[2024-01-10] MEDS: LIDOCAINE 1% 30 ML/SOD BICARB 8.4% 4 ML SQ ONE (08:31)
[2024-01-10] MEDS: FentaNYL CITRATE PF 100 MCG/2 ML VIAL IVP ONE (08:31)
[2024-01-10] MEDS: IOHEXOL 300 MG/ML 100 ML VIAL ICOR ONE (08:31)
[2024-01-10] MEDS: HEPARIN SODIUM,PORCINE 1,000 UNITS/ML 10 ML VIAL IVP ONE (08:33)
[2024-01-10 08:39] VITALS: BP 134/86; PULSE 51
[2024-01-10] MEDS ORDERED: CLOP75TA60 PO (08:43)
[2024-01-10] MEDS: CLOPIDOGREL BISULFATE 300 MG TABLET PO ONE (08:50)
[2024-01-10] MEDS: ASPIRIN 325 MG TABLET PO ONE (08:50)
[2024-01-10 08:54] VITALS: BP 136/76; PULSE 58
[2024-01-10 09:00] VITALS: BP 137/92; PULSE 56
[2024-01-10 09:09] VITALS: BP 149/70; PULSE 74
[2024-01-10 09:24] VITALS: BP 145/74; PULSE 60
[2024-01-10] MEDS ORDERED: MIDAZOLAM HCL 2 MG/2 ML VIAL ONE (09:45)
[2024-01-10] MEDS ORDERED: FentaNYL CITRATE PF 100 MCG/2 ML VIAL ONE (09:45)
[2024-01-10] MEDS ORDERED: HEPARIN SODIUM 1000 UNITS/NS 0 ML ONE (09:49)
[2024-01-11] MEDS ORDERED: CLOPIDOGREL BISULFATE 75 MG TABLET PO SCH (09:00)
== END 2024-01-10 13:15 | disposition home or self-care (01) ==
LOC: CATHLAB 05:14
PROVIDERS: ATTEND Internal Medicine
DX: T82.855A Stenosis of coronary artery stent, initial encounter (principal); I25.10 Atherosclerotic heart disease of native coronary artery without angina pectoris; R94.39 Abnormal result of other cardiovascular function study; Z79.82 Long term (current) use of aspirin; Z79.899 Other long term (current) drug therapy; Z88.6 Allergy status to analgesic agent; Y71.2 Prosthetic and other implants, materials and accessory cardiovascular devices associated with adverse incidents; Y92.89 Other specified places as the place of occurrence of the external cause
CPT/HCPCS: 80053; 85025; 85610; 85730; 36415; 99152; 99153; 93005; 92920; 93454; C1887; J3010; J1644; J3490 ×4; J2250; J7030; Q9967; Z7610